=== PATIENT | male | born 1945 | race Caucasian/White ===

== ENCOUNTER 2023-12-06 17:25 | Emergency (ER) | payer MEDICARE, OTHER, SELFPAY ==
[2023-12-06 17:28] VITALS: O2SAT 93
--- NOTE | 2023-12-06 17:28 | CRLHL7_ITS ---
For Patients: As a result of the Cures Act, medical imaging exams and procedure reports are released immediately into your electronic medical record. You may view this report before your referring provider. If you have questions, please contact your health care provider. Indication Fever Technique One view(s) of the chest Comparison None Findings The cardiomediastinal silhouette and pulmonary vasculature are unremarkable. There is no focal airspace consolidation, pleural effusion, or pneumothorax. No displaced fractures. Bilateral shoulder arthroplasties. Impression No acute cardiopulmonary process. Dictated by Yonatan Suh MD @ 12/06/2023 6:26:30 PM (Electronically Signed)
[2023-12-06 17:29] VITALS: BP 151/84; PULSE 97; RESP 18; TEMP 37.9; O2SAT 93; BMI 32.3
--- NOTE | 2023-12-06 17:31 | CRLHL7_ITS ---
For Patients: As a result of the Cures Act, medical imaging exams and procedure reports are released immediately into your electronic medical record. You may view this report before your referring provider. If you have questions, please contact your health care provider. INDICATION: Fever. Left knee pain. TECHNIQUE: Left knee radiographs, 2 views. COMPARISON: None. FINDINGS: Postsurgical changes from prior total left knee arthroplasty. The hardware appears intact without evidence of loosening or failure. No periprosthetic fractures identified. No suspicious osseous erosions or periosteal reaction. No acute fractures or dislocation. The joint spaces are preserved. No significant joint effusion. No significant soft tissue edema or radiopaque foreign bodies. IMPRESSION: 1. Status post total left knee arthroplasty. 2. No acute fractures or dislocation. No significant joint effusion. Dictated by Adriel Jacobsen MD @ 12/06/2023 6:26:26 PM (Electronically Signed)
--- NOTE | 2023-12-06 17:45 | ED_ITS ---
HPI - General Adult General Date Seen: 12/06/23 Chief complaint: Post Op Complication Stated complaint: Left knee pain Time Seen by Provider: 12/06/23 17:27 Source: patient, EMS and RN notes reviewed Mode of arrival: EMS Limitations: no limitations History of Present Illness HPI narrative: This 78-year-old male is brought in by [place] ambulance from [place] where he lives due to increased knee pain, was unable to get out of his chair due to the pain. He last took Tylenol about 2:30 p.m.. He notes the pain is really increased in his knee. He had a left knee replacement at [facility] on November 23. He states since a couple days after surgery, the knee has been draining. He denies any fevers. He is not short of breath, no chest pain. No cough or cold symptoms, no urinary symptoms. He states he did go to his surgeon yesterday, the surgeon thought everything looked fine, was aware of the knee drainage. He states he went to physical therapy after that appointment, the physical therapist center manager apist was concerned because the patella felt ?floppy?. He had oxycodone the 1st couple days after surgery, sounds as if he tried to go without it but had to go back on 2 tablets at bedtime. He is taking an 81 mg aspirin twice a day for DVT prophylaxis. He has also used Celebrex, may have used Vistaril today. He does tell nursing staff that ?my needs a break?. EMS reported his sugar to be elevated but patient is not known to be diabetic. Patient did deny any fevers but at the end of her conversation he did state that he had been feeling chilled the last day and half. The drainage from his knee is reddish to brownish from the paramedics. 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 History of duodenal ulcer with hemorrhage in 2011. 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 Related Data Home Medications ?Medication ?Instructions ?Recorded ?Confirmed Arava 12/06/23 Aristocort 12/06/23 Cozaar 12/06/23 Crestor 12/06/23 Ditropan 12/06/23 Iron (ferrous sulfate) 12/06/23 Keflex 12/06/23 Men's Multi-Vitamin 12/06/23 Plaquenil 12/06/23 Pomegranate 12/06/23 Protonix 12/06/23 Requip 12/06/23 Toprol XL 12/06/23 Voltaren 12/06/23 acetaminophen 325 mg capsule 325 mg PO Q4-6H PRN 12/06/23 12/06/23 ascorbic acid (vitamin C) 100 mg 100 mg PO DAILY 12/06/23 12/06/23 tablet aspirin 81 mg capsule 81 mg PO DAILY 12/06/23 12/06/23 cholecalciferol (vitamin D3) 12/06/23 coQ10 (liposomal ubiquinol) 12/06/23 duloxetine 60 mg capsule,delayed 60 mg PO DAILY 12/06/23 12/06/23 release (Cymbalta) hydrochlorothiazide 12/06/23 potassium gluconate 12/06/23 red yeast rice extract 12/06/23 trazodone 12/06/23 tumeric 12/06/23 vitamin B complex 12/06/23 zinc 12/06/23 Allergies Allergy/AdvReac Type Severity Reaction Status Date / Time adhesive Allergy Intermediate Verified 12/06/23 17:57 amlodipine Allergy Intermediate Verified 12/06/23 17:57 atorvastatin Allergy Intermediate Verified 12/06/23 17:57 doxycycline Allergy Intermediate Verified 12/06/23 17:57 gabapentin Allergy Intermediate Verified 12/06/23 17:37 meloxicam [From Mobic] Allergy Intermediate Verified 12/06/23 17:57 methotrexate Allergy Intermediate Verified 12/06/23 17:36 lisinopril Allergy Mild Verified 12/06/23 17:57 Review of Systems Status of ROS: Reports: 6 or more systems reviewed and unremarkable except as noted in History and below [facility] Medical History (Updated 12/06/23 @ 17:48 by Melissa Escamilla MD) Loose left total knee arthroplasty ?T84.033A - Mechanical loosening of internal left knee prosthetic joint, initial encounter (ICD-10) Exam Const: Vital Signs, click to edit/add: Vital Signs - 24 hr 12/06/23 17:28 12/06/23 17:29 12/06/23 18:52 Temperature 100.3 F H Pulse Rate 71 Pulse Rate [Pulse Oximeter] 97 Respiratory Rate 18 Blood Pressure Blood Pressure [Ri ght Upper Arm] 151/84 H Pulse Oximetry 93 93 92 Oxygen Delivery Me thod Room Air 12/06/23 19:00 12/06/23 19:02 12/06/23 19:15 Temperature Pulse Rate 68 68 69 Pulse Rate [Pulse Oximeter] Respiratory Rate 16 Blood Pressure 141/77 H Blood Pressure [Ri ght Upper Arm] Pulse Oximetry 92 93 91 Oxygen Delivery Me thod Room Air This patient has a fever on presentation of 100.3? F. he is otherwise alert come interactive, no apparent distress. His face looks mildly pale, sclera clear, conjugate gaze, pupils equal and round. Neck is supple, no adenopathy. Lungs are clear, good air entry, wheezing or crackles. CV regular rate and rhythm, no significant murmur, normal S1-S2, no S3-S4. Abdomen is soft, nontender, nondistended, no organomegaly. His left knee is warm, mild pinkish to reddish change, there is some definite serous drainage coming from the mid to upper portion of the leg with some expulsion of the drainage but is not actively seeping just at rest at this time. He has some mild edema below the leg in the surgical site. There is some dependent ecchymosis along the heel of that leg. It does seem like the quadriceps is intact on the patella, patient states he is too weak to straight leg raise this leg at this time but does attempt to do so when he is doing so I do definitely feel the quadriceps attachment to the upper patella. Documenting provider has reviewed patient's vital signs: yes Course Course ED Course: This patient is concerning Nisreen presenting with a fever in the setting of a knee replacement with increased knee pain. The concern is that this could be a septic knee joint. We unfortunately our at a critical lack of blood culture supplies, the facility has not been able to get any despite working on this for some time now. Patient is only able to receive 1 blood culture. I have reviewed with this patient that we are not really the appropriate facility for him to be hospitalized. I will start the workup and do so quickly as possible. If he does have an infected knee joint, he needs to go where there is Ortho ID and further care. I have placed a page out to the orthopedist on-call for [facility] at 5:38pm. Called the answering service back, waited on hold while the attempted to find prior page for over 5 minutes. They did eventually find it and are repeat paging, it is now 6:22 p.m.. Within 1 minute, did speak with 1 of the providers that was on in the orthopedic urgent care. Reviewed the case, it is Dr. Parveen Spears that performed his surgery. They would like him sent to [facility] where they can further assess the knee. Reviewed with the provider that it sounds like he had copious drainage while with EMS, do not feel comfortable tapping the knee, would prefer that they evaluate him. She stated she certainly understood this. We will try to contact [facility] and see if we can get this transfer expedited. Reevaluation(s) Time of Reevaluation #1: 18:12 Reevaluation #1: Per nursing staff, laboratory staff has called, they stated to add a 2nd blood culture and they will actually draw in the Peds vials which we do have more of. Again, there is critical shortage of routine blood cultures and the facility is nearly completely out, there is no known date of replenishment of these due to manufacturing issues from report of lab and administration. Time of Reevaluation #2: 18:47 Reevaluation #2: Patient and his were updated about plan to transfer to [facility]. She actually is telling me about what sounds like rigors or shaking chills that he has been having overnight. Reviewed with her to make sure that the staff at [facility] new that. Consultations Consultation #1: Did speak with the [facility], they did get me in touch with the ER at [facility]. Originally there was a misunderstanding and we were sent to a presumed clinic phone. The access center did call them back, I did end up speaking with Dr. Mak in the ER. She accepts transfer. I reviewed are blood culture issue. She is in agreement with transfer up there, they will get a 2nd regular blood culture as well as initiate antibiotics. We are going to hold on antibiotics here. At this time he maintains hemodynamic stability minus the temperature, we will try to expedite transfer. Their facility is close to us, hopefully will not take too long to get him there. Time: 18:28 Vital Signs Vital signs: Initial Vital Signs Pulse Oximetry 93 12/06/23 17:28 Vital Signs Pulse Oximetry 93 12/06/23 17:28 Temperature 100.3 F H 12/06/23 17:29 Pulse Rate 69 12/06/23 19:15 Respiratory Rate 16 12/06/23 19:02 Blood Pressure 141/77 H 12/06/23 19:02 Pulse Oximetry 91 12/06/23 19:15 Oxygen Delivery Method Room Air 12/06/23 19:02 Medications Administered Medications: Discontinued Medications Generic Name Dose Route Start Last Admin Trade Name Freq PRN Reason Stop Dose Admin Sodium Chloride 1,000 mls @ 1,000 mls/hr 12/06/23 17:31 12/06/23 18:43 0.9 % Sodium Chloride 1000 Ml IV 12/06/23 18:30 1,000 mls/hr .Q1H ARLENE Administration Oxycodone HCl 5 mg 12/06/23 17:31 12/06/23 18:43 Oxycodone 5 Mg Tablet PO 12/06/23 17:32 5 mg ONCE ONE Administration Medical Decision Making Lab Data Lab results reviewed: Yes I reviewed the patient's lab results Lab results narrative: Urinalysis has been ordered but we will not hold patient here to get this collected, this can be collected up at [facility] if need be. I do really suspect that he has a septic knee joint unfortunately. Labs: Lab Results 12/06/23 Range/Units 18:05 WBC 12.77 H (4.50-11.00) K/uL RBC 3.03 L (4.30-5.90) m/uL Hgb 9.3 L (13.5-17.5) gm/dL Hct 29.0 L (37.0-53.0) % MCV 96 (80-100) fL MCH 31 (26-34) pg MCHC 32 (32-36) gm/dL RDW Coeff of Jeanie 14.5 (11.5-15.5) % Plt Count 267 (140-440) K/uL Neut % (Auto) 83.2 H (42.0-72.0) % Lymph % (Auto) 6.3 L (20-44) % Medina % (Auto) 8.5 (0.0-11.0) % Eos % (Auto) 1.3 (0.0-7.0) % Baso % (Auto) 0.3 (0.0-3.0) % Neut # (Auto) 10.60 H (1.7-7.0) K/uL Lymph # (Auto) 0.80 L (0.90-2.90) K/uL Medina # (Auto) 1.10 H (0.00-0.90) K/UL Eos # (Auto) 0.20 (0.00-0.50) K/uL Baso # (Auto) 0.00 (0.00-0.30) K/uL Abs Immat Gran (auto) 0.10 (0.00-0.30) K/uL Imm/Tot Granulo (auto) 0.4 % Sodium 134 L (135-149) mmol/L Potassium 3.7 (3.6-5.1) mmol/L Chloride 102 (96-114) mmol/L Carbon Dioxide 26 (20-32) mmol/L Anion Gap 6 L (7-15) mEq/L BUN 31 H (7-30) mg/dL Creatinine 1.2 (0.5-1.5) mg/dL Estimated Creat Clear 53.23 Estimated GFR 62 ml/min Glucose 202 H (60-115) mg/dL Lactate 1.7 (0.5-1.9) mmol/L Calcium 8.9 (8.4-10.6) mg/dL Total Bilirubin 1.1 (0.1-1.5) mg/dL AST 50 H (12-35) U/L ALT 42 (4-50) U/L Alkaline Phosphatase 224 H (40-150) U/L C-Reactive Protein 22.4 H (0.5-1.0) mg/dL Total Protein 6.2 (6.0-8.3) g/dL Albumin 3.5 (3.3-5.0) g/dL Procalcitonin 1.40 H (<0.50) ng/mL SARS-CoV-2 (PCR) Negative SARS-CoV-2 (Negative) Influenza Type A (PCR) Negative PCR FLU A (Negative) Influenza Type B (PCR) Negative PCR FLU B (Negative) RSV (PCR) Negative PCR RSV (Negative) Imaging Data Chest x-ray: Attestation: I have reviewed the pertinent imaging results. My impression: I do not appreciate any infiltrate or pneumonia on my preliminary review. Radiologist's impression: Patient: GARTH COCHRAN Facility:?[facility] Patient ID:?[id number] Site Patient ID:?[id number]. Site :?[id number] Study:?XRay-Chest Portable-12/06/2023 5:59:22 PM Ordering Physician:Skyla Torres Final Report: Indication Fever Technique One view(s) of the chest Comparison None Findings The cardiomediastinal silhouette and pulmonary vasculature are unremarkable. There is no focal airspace consolidation, pleural effusion, or pneumothorax. No displaced fractures. Bilateral shoulder arthroplasties. Impression No acute cardiopulmonary process. Dictated by Yonatan Suh MD @ 12/06/2023 6:26:30 PM (Electronic Signature) XR left knee: Attestation: I have reviewed the pertinent imaging results. My impression: Knee replacement seen, do not appreciate acute pathology on my preliminary review. Radiologist's impression: Patient: GARTH COCHRAN Facility:?[facility] Patient ID:?[id number] Site Patient ID:?[id number]. Site :?[id number] Study:?XRay-Knee Left 2 view-12/06/2023 5:58:54 PM Ordering Physician:Skyla Torres Final Report: INDICATION: Fever. Left knee pain. TECHNIQUE: Left knee radiographs, 2 views. COMPARISON: None. FINDINGS: Postsurgical changes from prior total left knee arthroplasty. The hardware appears intact without evidence of loosening or failure. No periprosthetic fractures identified. No suspicious osseous erosions or periosteal reaction. No acute fractures or dislocation. The joint spaces are preserved. No significant joint effusion. No significant soft tissue edema or radiopaque foreign bodies. IMPRESSION: 1. Status post total left knee arthroplasty. 2. No acute fractures or dislocation. No significant joint effusion. Dictated by Adriel Jacobsen MD @ 12/06/2023 6:26:26 PM (Electronic Signature) Discharge Plan Discharge Prescriptions: No Action acetaminophen 325 mg capsule 325 mg PO Q4-6H PRN ascorbic acid (vitamin C) 100 mg tablet 100 mg PO DAILY aspirin 81 mg capsule 81 mg PO DAILY Keflex cholecalciferol (vitamin D3) Voltaren duloxetine [Cymbalta] 60 mg capsule,delayed release(DR/EC) 60 mg PO DAILY Iron (ferrous sulfate) hydrochlorothiazide Plaquenil Arava Cozaar Toprol XL Men's Multi-Vitamin Ditropan Protonix Pomegranate potassium gluconate red yeast rice extract Requip Crestor trazodone Aristocort tumeric coQ10 (liposomal ubiquinol) vitamin B complex zinc Follow Up/Referrals: Miguel Bailey MD [Primary Care Provider] -
[2023-12-06 18:10] LABS: Lactate* 1.7 mmol/L (0.5-1.9)
[2023-12-06 18:15] LABS: Basophils Percent Auto 0.3 % (0.0-3.0); Eosinophils Percent Auto 1.3 % (0.0-7.0); Hemoglobin* 9.3 gm/dL (13.5-17.5); Immature Granulocytes Pct Auto 0.4 %; Lymphocytes Percent Auto 6.3 % (20-44); Mean Corpuscular HGB Conc 32 gm/dL (32-36); Mean Corpuscular Hemoglobin 31 pg (26-34); Mean Corpuscular Volume 96 fL (80-100); Monocytes Percent Auto 8.5 % (0.0-11.0); Neutrophils Percent Auto 83.2 % (42.0-72.0); Platelet Count* 267 K/uL (140-440); RDW Coefficient of Variation % 14.5 % (11.5-15.5); Red Blood Count 3.03 m/uL (4.30-5.90); White Blood Count* 12.77 K/uL (4.50-11.00)
[2023-12-06 18:18] LABS: Slide Review Reflex No
[2023-12-06 18:29] LABS: Chloride* 102 mmol/L (96-114)
[2023-12-06 18:30] LABS: Albumin* 3.5 g/dL (3.3-5.0); Potassium* 3.7 mmol/L (3.6-5.1); Sodium* 134 mmol/L (135-149)
[2023-12-06 18:33] LABS: Alanine Aminotransferase* 42 U/L (4-50); Alkaline Phosphatase* 224 U/L (40-150); Anion Gap 6 mEq/L (7-15); Aspartate Amino Transferase* 50 U/L (12-35); Bilirubin Total* 1.1 mg/dL (0.1-1.5); Blood Urea Nitrogen* 31 mg/dL (7-30); Carbon Dioxide* 26 mmol/L (20-32); Creatinine* 1.2 mg/dL (0.5-1.5); Est. Creatinine Clearance* 53.23; Estimated Glomerular Filt Rate 62 ml/min; Glucose* 202 mg/dL (60-115); Total Protein* 6.2 g/dL (6.0-8.3)
[2023-12-06 18:34] LABS: Calcium* 8.9 mg/dL (8.4-10.6)
[2023-12-06] MEDS: OXYCODONE 5 MG TABLET PO (18:43)
[2023-12-06] MEDS: 0.9 % SODIUM CHLORIDE 1000 ml 1,000 ML IV (18:43)
[2023-12-06 18:50] LABS: C Reactive Protein* 22.4 mg/dL (0.5-1.0)
[2023-12-06 18:52] VITALS: PULSE 71; O2SAT 92
[2023-12-06 19:00] VITALS: PULSE 68; O2SAT 92
[2023-12-06 19:01] LABS: PCR FLU A Negative PCR FLU A (Negative); PCR FLU B Negative PCR FLU B (Negative); PCR RSV Negative PCR RSV (Negative); SARS PCR* Negative SARS-CoV-2 (Negative)
[2023-12-06 19:02] VITALS: BP 141/77; PULSE 68; RESP 16; O2SAT 93
[2023-12-06 19:15] VITALS: PULSE 69; O2SAT 91
--- NOTE | 2023-12-06 19:26 | ED.NURSE ---
Report given to [facility] VASHTI.
== END 2023-12-06 19:23 | disposition short-term general hospital (02) ==
LOC: ED 19:11
PROVIDERS: Emergency Provider Family Medicine; PCP Family Medicine
DX: M25.562 Pain in left knee (principal); Z96.652 Presence of left artificial knee joint; Z98.890 Other specified postprocedural states
CPT/HCPCS: 36415; 71045; 73560; 80053; 81001; 83605; 84145; 85025; 86140; 87040; 87186; 87631; 94761; 99284; A9270; J7030

== ENCOUNTER 2023-12-06 19:10 | Outpatient (CLI) | payer MEDICARE, OTHER, SELFPAY | END 2023-12-06 19:11 | disposition home or self-care (01) | LOC: AMB 01-02 03:07 | PROVIDERS: PCP Family Medicine; Visit Provider Family Medicine | DX: T84.033A Mechanical loosening of internal left knee prosthetic joint, initial encounter (principal) | CPT/HCPCS: A0425; A0429 ==